=== PATIENT | male | born 1955 | race Caucasian/White ===

== ENCOUNTER → 2018-05-20 07:34 | Outpatient (CLI) | payer OTHER, SELFPAY ==
[2018-05-20 08:34] LABS: Add Manual Diff / Slide Review NO; Basophils Percent Auto 0.6 % (0-2); Eosinophils Percent Auto 3.9 % (2-4); Hematocrit 39.4 % (41-53); Hemoglobin 13.6 g/dL (13.5-17.5); Mean Corpuscular HGB Conc 34.6 % (30-36); Mean Corpuscular Hemoglobin 30.9 PG (26-34); Mean Corpuscular Volume 89.3 fL (80-100); Monocytes Percent Auto 10.4 % (3-14); Neutrophils Absolute Auto 2700 /uL (3000-5900); Neutrophils Percent Auto 52.1 % (50-75); Platelet Count 169 X10^3/uL (150-400); Red Blood Cell Count 4.41 X10^6/uL (4.5-5.9); Red Cell Distribution Width 13.5 % (11.6-14.8); White Blood Cell Count 5.2 X10^3/uL (4.5-11.0)
[2018-05-20 09:09] LABS: Alanine Aminotransferase 43 IU/L (21-72); Albumin 4.2 g/dL (3.5-5.0); Albumin Globulin Ratio 1.4 (1.0-2.8); Alkaline Phosphatase 39 U/L (38-126); Aspartate Aminotransferase 27 IU/L (17-59); BUN Creatinine Ratio 17.7 (6-22); Bilirubin Total 0.6 mg/dL (0.2-1.3); Blood Urea Nitrogen 23 mg/dL (9-20); Calcium 9.3 mg/dL (8.4-10.2); Carbon Dioxide 28 mmol/L (22-32); Chloride 108 mmol/L (98-107); Cholesterol 216 mg/dL (140-199); Estimated Glomerular Filt Rate 55.6 mL/min (>60); Globulin 2.9 g/dL (1.7-4.1); Glucose 102 mg/dL (80-110); HDL Cholesterol 34 mg/dL (40-60); HEMOLYSIS < 15 (0-50); LDL Cholesterol Calculated 153 mg/dL (<100); Potassium 4.7 mmol/L (3.4-5.1); Sodium 144 mmol/L (137-145); Total Protein 7.1 g/dL (6.3-8.2); Triglycerides 147 mg/dL (35-150)
== END ==
PROVIDERS: PCP Family Medicine; Visit Provider Family Medicine
DX: E78.00 Pure hypercholesterolemia, unspecified (principal); Z12.5 Encounter for screening for malignant neoplasm of prostate
CPT/HCPCS: 36415; 80053; 80061; 84153; 85025

== ENCOUNTER 2018-08-08 10:15 | Day surgery (SDC) | payer OTHER, SELFPAY ==
--- NOTE | 2018-08-08 | PATH_ITS ---
[facility] Accession Number: [id number] . 01 Material submitted: . PART A: COLON POLYP AT 15CM PART B: COLON POLYP AT 50CM X2 . 02 Diagnosis: A. Colon Polyp at 15 cm: Hyperplastic polyp. . B. Colon Polyps at 50 cm: Fragments of hyperplastic polyp (two polyps removed). MRV/08/10/2018 . 02 Electronically signed: . Newton Man MD, PhD, Pathologist NPI- [id number] . 01 Gross description: . Part A: COLON POLYP AT 15CM: Received in formalin are 3 fragment(s) of carnes, soft tissue measuring 0.6 x 0.5 x 0.1 cm to 0.3 x 0.2 x 0.2 cm submitted entirely in 1 cassette(s) Part B: COLON POLYP AT 50CM X2: Received in formalin are multiple fragment(s) of carnes, soft tissue measuring 0.9 x 0.4 x 0.1 cm in aggregate submitted entirely in 1 cassette(s) /CKI /CKI . 02 Pathologist provided ICD-10: K63.5 . 02 CPT . 194833, 041694 Performed at: 01 [facility] [address], [place], [place] [id number] MD Major Benjamin MD Phone: [phone] Performed at: 02 [facility] [address] [place], [place] [id number] MD Merline Clay MD Phone: [phone]
[2018-08-08 12:15] VITALS: BMI 24.4
[2018-08-08 12:29] VITALS: BP 118/78; PULSE 71; RESP 15; TEMP 36.6; O2SAT 92
[2018-08-08] MEDS: SODIUM CHLORIDE 0.9% 1,000 ML 21 ML IV (12:30)
[2018-08-08] MEDS: MIDAZOLAM 5 MG/5 ML VIAL IV ×2 (13:31→13:32)
[2018-08-08] MEDS: fentaNYL 250 MCG/5 ML INJ IV (13:31)
[2018-08-08 13:52] VITALS: BP 106/74; PULSE 89; RESP 15; TEMP 36; O2SAT 96
[2018-08-08 13:57] VITALS: BP 106/69; PULSE 87; RESP 16; O2SAT 95
[2018-08-08 14:04] VITALS: BP 105/72; PULSE 87; RESP 16; O2SAT 96
[2018-08-08 14:20] VITALS: BP 119/70; PULSE 85; RESP 15; TEMP 36.7; O2SAT 96
--- NOTE | 2018-08-08 15:52 | HP_ITS ---
DATE OF SERVICE: 08/08/2018 Patient is coming in for his first screening colonoscopy, asymptomatic. No melena. No hematochezia. No abdominal pain. PAST MEDICAL HISTORY: Has hypercholesterolemia. PAST SURGICAL HISTORY: He has had a hernia repair. ALLERGIES: HE IS ALLERGIC TO ASPIRIN. MEDICATIONS: Takes no medications for his cholesterol. Does take occasional sildenafil 25 mg. REVIEW OF SYSTEMS: Denies exertional chest pain or unusual shortness of breath. GI: negative. : Negative. Neurologic: Normal. No strokes or seizures. PHYSICAL EXAMINATION VITAL SIGNS: Blood pressure 118/78, heart rate 71, respirations 15, afebrile. HEENT: Ears, nose, and throat are normal. NECK: No adenopathy. CHEST: Lungs are clear. HEART: Regular rhythm. No murmur. ABDOMEN: Soft, no organomegaly. No tenderness. : Patient will have a rectal exam at the time of colonoscopy. DIAGNOSIS: Screening colonoscopy. Marion Peter - Giuliano/ doc#: [id number]/job#: [id number] dd: 08/08/2018 13:18:00 dt: 08/08/2018 15:36:00 DICTATING /COPIES TO: Fly Condon MD COPIES MNE: ALCIDES
--- NOTE | 2018-08-08 16:42 | OP_ITS ---
DATE OF SERVICE: 08/08/2018 PREOP DIAGNOSIS: Screening colonoscopy. POSTOP DIAGNOSIS: Finding probably hyperplastic polyp at 20 and 50 cm, likely not true adenomas. OPERATION: Total colonoscopy to the cecum. Removal of polyp at 20 and 50 cm. SURGEON: Fly Condon MD DESCRIPTION OF PROCEDURE: The patient was properly identified during surgical pause. He was given conscious sedation using a total of 5 mg Versed and 200 mcg of fentanyl. The flexible fiberoptic colonoscope inserted transanally to the cecum. Patient did have a small pedunculated 5-mm polyp at 20 cm and another at 50 cm. They looked identical. They were very likely hyperplastic in nature. Doubt that they are true adenomas. These were removed with the cold forceps. The procedure was very well tolerated. Marion, Peter - Giuliano/carter doc#: [id number]/job#: [id number] dd: 08/08/2018 13:52:00 dt: 08/08/2018 16:38:00 DICTATING /COPIES TO: Fly Condon MD COPIES MNE: ALCIDES
== END 2018-08-08 14:45 ==
PROVIDERS: Visit Provider Surgery
PROC: 0DJD8ZZ Inspection of Lower Intestinal Tract, Via Natural or Artificial Opening Endoscopic (ICD-10-PCS; CPT 45378; principal; 2018-08-08 13:45)
DX: Z12.11 Encounter for screening for malignant neoplasm of colon (principal); K63.5 Polyp of colon; E78.00 Pure hypercholesterolemia, unspecified
CPT/HCPCS: 45380; J2250; J3010

== ENCOUNTER → 2018-11-26 08:48 | Outpatient (CLI) | payer OTHER, SELFPAY ==
[2018-11-26 09:30] LABS: Alanine Aminotransferase 44 IU/L (21-72); Albumin 4.3 g/dL (3.5-5.0); Albumin Globulin Ratio 1.7 (1.0-2.8); Alkaline Phosphatase 48 U/L (38-126); Aspartate Aminotransferase 26 IU/L (17-59); BUN Creatinine Ratio 14.2 (6-22); Bilirubin Total 0.6 mg/dL (0.2-1.3); Blood Urea Nitrogen 17 mg/dL (9-20); Calcium 9.3 mg/dL (8.4-10.2); Carbon Dioxide 24 mmol/L (22-32); Chloride 106 mmol/L (98-107); Cholesterol 214 mg/dL (140-199); Estimated Glomerular Filt Rate > 60.0 mL/min (>60); Globulin 2.5 g/dL (1.7-4.1); Glucose 99 mg/dL (80-110); HDL Cholesterol 39 mg/dL (40-60); HEMOLYSIS < 15 (0-50); LDL Cholesterol Calculated 149 mg/dL (<100); Potassium 4.6 mmol/L (3.4-5.1); Sodium 139 mmol/L (137-145); Total Protein 6.8 g/dL (6.3-8.2); Triglycerides 131 mg/dL (35-150)
== END ==
PROVIDERS: PCP Nurse Practitioner; Visit Provider Nurse Practitioner
DX: N19 Unspecified kidney failure (principal)
CPT/HCPCS: 36415; 80053; 80061

== ENCOUNTER → 2019-06-19 09:36 | Outpatient (CLI) | payer MEDICARE, OTHER, SELFPAY ==
--- NOTE | 2019-06-19 09:38 | DI.US.S_ITS ---
PROCEDURE: US ABD AORTA ANEURYSM SCREEN INDICATIONS: SCREEN TECHNIQUE: Real time scanning was performed of the aorta and iliac arteries, with image documentation. COMPARISON: None. FINDINGS: Aorta: Proximal aortic diameter is not seen due to bowel gas cm. Mid-aorta measures 1.9 cm. Distal aortic diameter is 1.9 cm. Iliac arteries: Right common iliac artery measures 2.3 x 2.1 cm in axial dimension and this is over a fusiform length of 4.6 cm. Left common iliac artery measures 1.5 cm. IMPRESSION: Abdominal aortic aneurysm is not identified but the upper third of the aorta could not be seen due to bowel gas. Note is made of a common iliac artery aneurysm with a maximal axial dimension of 2.3 cm over a fusiform craniocaudad length of 4.6 cm. Dictated by: Bishnu Dennis M.D. on 06/19/2019 at 10:22 Approved by: Bishnu Dennis M.D. on 06/19/2019 at 10:24
== END ==
PROVIDERS: PCP Nurse Practitioner; Visit Provider Nurse Practitioner
DX: Z13.6 Encounter for screening for cardiovascular disorders (principal); I72.3 Aneurysm of iliac artery; Z13.820 Encounter for screening for osteoporosis; M85.852 Other specified disorders of bone density and structure, left thigh; M85.851 Other specified disorders of bone density and structure, right thigh; Z87.891 Personal history of nicotine dependence
CPT/HCPCS: 76706; 77080

== ENCOUNTER → 2019-10-10 07:36 | Outpatient (CLI) | payer MEDICARE, OTHER, SELFPAY ==
[2019-10-10 08:34] LABS: Alanine Aminotransferase 37 IU/L (<50); Albumin 4.6 g/dL (3.5-5.0); Albumin Globulin Ratio 1.5 (1.0-2.8); Alkaline Phosphatase 48 U/L (38-126); Aspartate Aminotransferase 33 IU/L (17-59); BUN Creatinine Ratio 16.9 (6-22); Bilirubin Total 0.7 mg/dL (0.2-1.3); Blood Urea Nitrogen 22 mg/dL (9-20); Calcium 9.3 mg/dL (8.4-10.2); Carbon Dioxide 25 mmol/L (22-32); Chloride 105 mmol/L (98-107); Cholesterol 230 mg/dL (140-199); Estimated Glomerular Filt Rate 55.4 mL/min (>60); Globulin 3.1 g/dL (1.7-4.1); Glucose 109 mg/dL (80-110); HDL Cholesterol 38 mg/dL (40-60); HEMOLYSIS < 15 (0-50); LDL Cholesterol Calculated 170 mg/dL (<100); Potassium 4.3 mmol/L (3.4-5.1); Sodium 141 mmol/L (137-145); Total Protein 7.7 g/dL (6.3-8.2); Triglycerides 112 mg/dL (35-150)
[2019-10-10 08:54] LABS: Free T3, Triiodothyronine Free 3.74 pg/mL (2.77-5.27); Free T4, Direct Thyroxine 0.84 ng/dL (0.78-2.19)
[2019-10-10 09:00] LABS: Prostate Specific Antigen Scrn 1.59 ng/mL (0.1-4.0)
[2019-10-10 09:08] LABS: Thyroid Stimulating Hormone 5.66 uIU/mL (0.47-4.68)
== END ==
PROVIDERS: PCP Nurse Practitioner; Referring Provider Nurse Practitioner; Visit Provider Nurse Practitioner
DX: Z12.5 Encounter for screening for malignant neoplasm of prostate (principal); Z13.29 Encounter for screening for other suspected endocrine disorder; E78.00 Pure hypercholesterolemia, unspecified; R94.6 Abnormal results of thyroid function studies; Z90.89 Acquired absence of other organs
CPT/HCPCS: 36415; 80053; 80061; 84439; 84443; 84481; G0103

== ENCOUNTER → 2019-11-18 08:13 | Outpatient (CLI) | payer MEDICARE, OTHER, SELFPAY ==
[2019-11-18 08:49] LABS: Alanine Aminotransferase 39 IU/L (<50); Albumin 4.4 g/dL (3.5-5.0); Albumin Globulin Ratio 1.4 (1.0-2.8); Alkaline Phosphatase 43 U/L (38-126); Aspartate Aminotransferase 33 IU/L (17-59); Bilirubin Total 0.6 mg/dL (0.2-1.3); Bilirubin Unconjugated 0.5 mg/dL (0.0-1.1); Cholesterol 171 mg/dL (140-199); Globulin 3.1 g/dL (1.7-4.1); HDL Cholesterol 33 mg/dL (40-60); HEMOLYSIS < 15 (0-50); LDL Cholesterol Calculated 116 mg/dL (<100); Total Protein 7.5 g/dL (6.3-8.2); Triglycerides 112 mg/dL (35-150)
== END ==
PROVIDERS: PCP Nurse Practitioner; Referring Provider Nurse Practitioner; Visit Provider Nurse Practitioner
DX: E78.2 Mixed hyperlipidemia (principal)
CPT/HCPCS: 36415; 80061; 80076

== ENCOUNTER → 2020-02-29 14:33 | Outpatient (CLI) | payer MEDICARE, OTHER, SELFPAY ==
[2020-02-29 15:10] LABS: Alanine Aminotransferase 34 IU/L (<50); Albumin 4.4 g/dL (3.5-5.0); Albumin Globulin Ratio 1.8 (1.0-2.8); Alkaline Phosphatase 42 U/L (38-126); Aspartate Aminotransferase 33 IU/L (17-59); Bilirubin Total 0.7 mg/dL (0.2-1.3); Bilirubin Unconjugated 0.7 mg/dL (0.0-1.1); Cholesterol 174 mg/dL (140-199); Globulin 2.5 g/dL (1.7-4.1); HDL Cholesterol 36 mg/dL (40-60); HEMOLYSIS < 15 (0-50); LDL Cholesterol Calculated 101 mg/dL (<100); Total Protein 6.9 g/dL (6.3-8.2); Triglycerides 187 mg/dL (35-150)
== END ==
PROVIDERS: PCP Nurse Practitioner; Referring Provider Nurse Practitioner; Visit Provider Nurse Practitioner
DX: E78.2 Mixed hyperlipidemia (principal); Z79.899 Other long term (current) drug therapy
CPT/HCPCS: 36415; 80061; 80076

== ENCOUNTER → 2020-08-07 08:39 | Outpatient (CLI) | payer MEDICARE, OTHER, SELFPAY ==
[2020-08-07 10:18] LABS: Alanine Aminotransferase 41 IU/L (<50); Albumin 4.2 g/dL (3.5-5.0); Albumin Globulin Ratio 1.6 (1.0-2.8); Alkaline Phosphatase 40 U/L (38-126); Aspartate Aminotransferase 34 IU/L (17-59); BUN Creatinine Ratio 13.5 (6-22); Bilirubin Total 0.7 mg/dL (0.2-1.3); Blood Urea Nitrogen 19 mg/dL (9-20); Calcium 9.5 mg/dL (8.4-10.2); Carbon Dioxide 30 mmol/L (22-32); Chloride 105 mmol/L (98-107); Cholesterol 175 mg/dL (140-199); Estimated Glomerular Filt Rate 50.3 mL/min (>60); Globulin 2.6 g/dL (1.7-4.1); Glucose 102 mg/dL (80-110); HDL Cholesterol 41 mg/dL (40-60); HEMOLYSIS < 15 (0-50); LDL Cholesterol Calculated 109 mg/dL (<100); Potassium 5.1 mmol/L (3.4-5.1); Sodium 138 mmol/L (137-145); Total Protein 6.8 g/dL (6.3-8.2); Triglycerides 126 mg/dL (35-150)
[2020-08-07 10:32] LABS: Free T3, Triiodothyronine Free 3.85 pg/mL (2.77-5.27); Free T4, Direct Thyroxine 0.92 ng/dL (0.78-2.19)
[2020-08-07 10:46] LABS: Thyroid Stimulating Hormone 4.24 uIU/mL (0.47-4.68)
== END ==
PROVIDERS: PCP Nurse Practitioner; Referring Provider Nurse Practitioner; Visit Provider Nurse Practitioner
DX: E78.2 Mixed hyperlipidemia (principal); N18.30 Chronic kidney disease, stage 3 unspecified; R94.6 Abnormal results of thyroid function studies; Z79.899 Other long term (current) drug therapy
CPT/HCPCS: 36415; 80053; 80061; 84439; 84443; 84481

== ENCOUNTER → 2021-07-12 08:53 | Outpatient (CLI) | payer MEDICARE, OTHER, SELFPAY ==
[2021-07-12 10:04] LABS: Alanine Aminotransferase 33 IU/L (<50); Albumin 4.4 g/dL (3.5-5.0); Albumin Globulin Ratio 1.8 (1.0-2.8); Alkaline Phosphatase 40 U/L (38-126); Aspartate Aminotransferase 28 IU/L (17-59); BUN Creatinine Ratio 13.1 (6-22); Bilirubin Total 0.6 mg/dL (0.2-1.3); Blood Urea Nitrogen 19 mg/dL (9-20); Calcium 9.6 mg/dL (8.4-10.2); Carbon Dioxide 28 mmol/L (22-32); Chloride 107 mmol/L (98-107); Cholesterol 184 mg/dL (140-199); Estimated Glomerular Filt Rate 48.5 mL/min (>60); Globulin 2.5 g/dL (1.7-4.1); Glucose 98 mg/dL (80-110); HDL Cholesterol 42 mg/dL (40-60); HEMOLYSIS < 15 (0-50); LDL Cholesterol Calculated 117 mg/dL (<100); Potassium 4.7 mmol/L (3.4-5.1); Sodium 141 mmol/L (137-145); Total Protein 6.9 g/dL (6.3-8.2); Triglycerides 123 mg/dL (35-150)
[2021-07-12 10:22] LABS: Free T3, Triiodothyronine Free 4.02 pg/mL (2.77-5.27); Free T4, Direct Thyroxine 0.86 ng/dL (0.78-2.19)
[2021-07-12 10:36] LABS: Thyroid Stimulating Hormone 4.39 uIU/mL (0.47-4.68)
[2021-07-12 11:40] LABS: Microalbumi Creatinin Ratio Ur 3.1 ug/mg CR (<30); Microalbumin Urine Random 0.8 mg/dL (0-1.6)
== END ==
PROVIDERS: PCP Nurse Practitioner; Referring Provider Nurse Practitioner; Visit Provider Nurse Practitioner
DX: E78.00 Pure hypercholesterolemia, unspecified (principal); E78.2 Mixed hyperlipidemia; N18.30 Chronic kidney disease, stage 3 unspecified; R94.6 Abnormal results of thyroid function studies; Z79.899 Other long term (current) drug therapy; Z12.5 Encounter for screening for malignant neoplasm of prostate
CPT/HCPCS: 36415; 80053; 80061; 82043; 82570; 84153; 84439; 84443; 84481; G0103

== ENCOUNTER → 2021-07-14 14:16 | Outpatient (CLI) | payer MEDICARE, OTHER, SELFPAY | PROVIDERS: PCP Nurse Practitioner; Referring Provider Nurse Practitioner; Visit Provider Nurse Practitioner | DX: M85.851 Other specified disorders of bone density and structure, right thigh (principal); N28.9 Disorder of kidney and ureter, unspecified; Z87.891 Personal history of nicotine dependence | CPT/HCPCS: 77080 ==

== ENCOUNTER → 2022-07-07 08:53 | Outpatient (CLI) | payer MEDICARE, OTHER, SELFPAY ==
[2022-07-07 10:44] LABS: Add Manual Diff / Slide Review NO; Basophils Absolute Auto 0 /uL (0-100); Basophils Percent Auto 0.7 % (0-2); Eosinophils Absolute Auto 200 /uL (0-450); Eosinophils Percent Auto 2.9 % (2-4); Hematocrit 43.2 % (41-53); Hemoglobin 14.5 g/dL (13.5-17.5); Lymphocytes Absolute Auto 1700 /uL (1100-4500); Lymphocytes Percent Auto 32.6 % (25-40); Mean Corpuscular HGB Conc 33.6 % (30-36); Mean Corpuscular Hemoglobin 30.2 PG (26-34); Monocytes Absolute Auto 500 /uL (0-900); Neutrophils Absolute Auto 2900 /uL (1500-7000); Neutrophils Percent Auto 54.8 % (50-75); Platelet Count 138 X10^3/uL (150-400); White Blood Cell Count 5.3 X10^3/uL (4.5-11.0)
[2022-07-07 11:25] LABS: Alanine Aminotransferase 29 IU/L (<50); Albumin 4.2 g/dL (3.5-5.0); Albumin Globulin Ratio 1.5 (1.0-2.8); Alkaline Phosphatase 43 U/L (38-126); Aspartate Aminotransferase 25 IU/L (17-59); BUN Creatinine Ratio 14.8 (6-22); Bilirubin Total 0.5 mg/dL (0.2-1.3); Blood Urea Nitrogen 18 mg/dL (9-20); Carbon Dioxide 28 mmol/L (22-32); Chloride 104 mmol/L (98-107); Cholesterol 183 mg/dL (140-199); Estimated Glomerular Filt Rate > 60 mL/min (>60); Globulin 2.8 g/dL (1.7-4.1); Glucose 100 mg/dL (80-110); HDL Cholesterol 41 mg/dL (40-60); HEMOLYSIS < 15 (0-50); LDL Cholesterol Calculated 120 mg/dL (<100); Potassium 4.7 mmol/L (3.4-5.1); Sodium 138 mmol/L (137-145); Triglycerides 108 mg/dL (35-150)
[2022-07-07 11:31] LABS: Free T3, Triiodothyronine Free 3.72 pg/mL (2.77-5.27); Free T4, Direct Thyroxine 0.85 ng/dL (0.78-2.19)
[2022-07-07 11:45] LABS: Thyroid Stimulating Hormone 3.19 uIU/mL (0.47-4.68)
[2022-07-07 11:46] LABS: Prostate Specific Antigen 1.48 ng/mL (0.10-4.00)
[2022-07-07 15:26] LABS: Creatinine Urine Random 38.5 mg/dL
[2022-07-07 15:59] LABS: Microalbumin Urine Random < 0.6 mg/dL (0-1.6)
== END ==
PROVIDERS: PCP Nurse Practitioner; Referring Provider Nurse Practitioner; Visit Provider Nurse Practitioner
DX: E78.00 Pure hypercholesterolemia, unspecified (principal); R94.6 Abnormal results of thyroid function studies; E78.2 Mixed hyperlipidemia; N18.30 Chronic kidney disease, stage 3 unspecified
CPT/HCPCS: 36415; 80053; 80061; 82043; 82570; 84153; 84439; 84443; 84481; 85025

== ENCOUNTER → 2022-11-24 16:42 | Outpatient (CLI) | payer MEDICARE, OTHER, SELFPAY ==
--- NOTE | 2022-11-24 16:45 | DI.RAD.S_ITS ---
PROCEDURE: XR HIP W PEL IF DONE RT 2V INDICATIONS: right leg weakness, pain TECHNIQUE: AP pelvis with lateral view(s) of the right hip(s). COMPARISON: None. FINDINGS: Bones: Asymmetric moderate right hip joint osteoarthritic changes are seen with joint space narrowing, subchondral sclerosis and marginal osteophyte formation. Prominence of superior right femoral head neck junction is also seen which can be seen associated with CAM type femoral acetabular impingement. No evidence of avascular necrosis of femoral head. No fractures or dislocations. Pelvic ring appears intact. No suspicious bony lesions. Soft tissues: The visualized bowel gas pattern is normal. No suspicious soft tissue calcifications. IMPRESSION: Asymmetric moderate right hip joint osteoarthritis. No fracture or dislocation. No evidence of avascular necrosis. Dictated by: Tomy Enriquez M.D. on 11/24/2022 at 17:50 Approved by: Tomy Enriquez M.D. on 11/24/2022 at 17:51
--- NOTE | 2022-11-24 16:45 | DI.RAD.S_ITS ---
PROCEDURE: XR LUMBAR SPINE 2-3V INDICATIONS: right leg weakness, pain TECHNIQUE: 3 views of the lumbar spine were acquired. COMPARISON: None. FINDINGS: Bones: 5 [id number] vertebrae are present. There is normal bony alignment. Degenerative endplate changes and bilateral facet arthrosis throughout lumbar spine is seen more notably at L4-5 and L5-S1 levels. No vertebral body compression fractures. No suspicious bony lesions. Soft tissues: Overlying bowel gas pattern is normal. No suspicious soft tissue calcifications. IMPRESSION: Degenerative disc disease throughout lumbar spine. No acute compression fracture or spondylolisthesis. Dictated by: Tomy Enriquez M.D. on 11/24/2022 at 17:51 Approved by: Tomy Enriquez M.D. on 11/24/2022 at 17:52
== END ==
PROVIDERS: PCP Nurse Practitioner; Referring Provider Nurse Practitioner Family; Visit Provider Nurse Practitioner Family
DX: M16.11 Unilateral primary osteoarthritis, right hip (principal); M51.36 Other intervertebral disc degeneration, lumbar region; M51.37 Other intervertebral disc degeneration, lumbosacral region; M79.651 Pain in right thigh
CPT/HCPCS: 72100; 73502

== ENCOUNTER → 2023-07-06 09:27 | Outpatient (CLI) | payer MEDICARE, OTHER, SELFPAY ==
[2023-07-06 10:50] LABS: Add Manual Diff / Slide Review NO; Basophils Absolute Auto 0 /uL (0-100); Basophils Percent Auto 0.9 % (0-2); Eosinophils Absolute Auto 100 /uL (0-450); Eosinophils Percent Auto 2.7 % (2-4); Hematocrit 40.6 % (41-53); Hemoglobin 13.6 g/dL (13.5-17.5); Lymphocytes Absolute Auto 1400 /uL (1100-4500); Lymphocytes Percent Auto 31.5 % (25-40); Mean Corpuscular HGB Conc 33.6 % (30-36); Mean Corpuscular Hemoglobin 30.3 PG (26-34); Mean Corpuscular Volume 90.1 fL (80-100); Monocytes Absolute Auto 400 /uL (0-900); Monocytes Percent Auto 10.2 % (3-14); Neutrophils Absolute Auto 2400 /uL (1500-7000); Neutrophils Percent Auto 54.7 % (50-75); Platelet Count 136 X10^3/uL (150-400); Red Cell Distribution Width 13.5 % (11.6-14.8); White Blood Cell Count 4.3 X10^3/uL (4.5-11.0)
[2023-07-06 11:08] LABS: Alanine Aminotransferase 31 IU/L (<50); Albumin 4.4 g/dL (3.5-5.0); Albumin Globulin Ratio 1.5 (1.0-2.8); Alkaline Phosphatase 41 U/L (38-126); Aspartate Aminotransferase 29 IU/L (17-59); BUN Creatinine Ratio 18.9 (6-22); Bilirubin Total 0.7 mg/dL (0.2-1.3); Blood Urea Nitrogen 27 mg/dL (9-20); Calcium 9.6 mg/dL (8.4-10.2); Carbon Dioxide 27 mmol/L (22-32); Chloride 105 mmol/L (98-107); Cholesterol 145 mg/dL (140-199); Estimated Glomerular Filt Rate 53 mL/min (>60); Globulin 2.9 g/dL (1.7-4.1); Glucose 100 mg/dL (80-110); HDL Cholesterol 38 mg/dL (40-60); HEMOLYSIS < 15 (0-50); LDL Cholesterol Calculated 88 mg/dL (<100); Potassium 4.7 mmol/L (3.4-5.1); Sodium 139 mmol/L (137-145); Total Protein 7.3 g/dL (6.3-8.2); Triglycerides 93 mg/dL (35-150)
[2023-07-06 11:20] LABS: Vitamin D 25 Hydroxy (D3) 38.9 ng/mL (30.0-100.0)
[2023-07-06 11:21] LABS: Free T3, Triiodothyronine Free 3.94 pg/mL (2.77-5.27); Free T4, Direct Thyroxine 1.11 ng/dL (0.78-2.19)
[2023-07-06 16:21] LABS: Microalbumin Urine Random 1.3 mg/dL (0-1.6)
[2023-07-06 17:57] LABS: Creatinine Urine Random 406.3 mg/dL; Microalbumi Creatinin Ratio Ur 3.1 ug/mg CR (<30)
== END ==
PROVIDERS: PCP Nurse Practitioner; Referring Provider Family Medicine; Visit Provider Family Medicine
DX: R00.9 Unspecified abnormalities of heart beat (principal); N18.30 Chronic kidney disease, stage 3 unspecified; E78.2 Mixed hyperlipidemia; R03.0 Elevated blood-pressure reading, without diagnosis of hypertension; R94.6 Abnormal results of thyroid function studies
CPT/HCPCS: 36415; 80053; 80061; 82043; 82306; 82570; 84439; 84443; 84481; 85025

== ENCOUNTER → 2023-10-11 15:00 | Outpatient (CLI) | payer MEDICARE, OTHER, SELFPAY | LOC: CAR 15:01 | PROVIDERS: PCP Nurse Practitioner; Referring Provider Nurse Practitioner; Visit Provider Nurse Practitioner | DX: R00.0 Tachycardia, unspecified (principal); I95.81 Postprocedural hypotension | CPT/HCPCS: 93246 ==

== ENCOUNTER 2024-01-11 09:32 | Day surgery (SDC) | payer MEDICARE, OTHER, SELFPAY ==
--- NOTE | 2024-01-11 | PATH_ITS ---
[facility] Accession Number: [id number] No. of containers..01 Tissue . 01 Material submitted: . colon - TRANSVERSE COLON POLYP . 01 Diagnosis: TRANSVERSE COLON POLYP: Hyperplastic polyp. STO 01/17/2024 1154 Local . 01 Electronically signed: . Major Benjamin MD, Pathologist NPI- [id number] . 01 Gross description: . TRANSVERSE COLON POLYP: Received in formalin is 1 fragment(s) of carnes, soft tissue measuring 0.6 x 0.6 x 0.2 cm submitted entirely in 1 cassette(s) /ENMANUEL 01/17/2024 1154 Local . 01 Pathologist provided ICD-10: K63.5 . 01 CPT . 063061 Specimen Comment: A courtesy copy of this report has been sent to [phone] Performed at: 01 [facility] [address] [place] [id number] MD Major Benjamin MD Phone: [phone]
[2024-01-11] MEDS: LACTATED RINGERS 1,000 ML 42 ML IV (10:10)
[2024-01-11 10:16] VITALS: BP 117/75; PULSE 105; RESP 14; TEMP 36.2; O2SAT 95
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
[2024-01-11 11:30] VITALS: BP 96/59; PULSE 81; RESP 16; TEMP 37.1; O2SAT 94
[2024-01-11 11:33] VITALS: BP 92/55; PULSE 81; RESP 16; O2SAT 92
[2024-01-11] MEDS: ONDANSETRON 4 MG/2 ML INJ IV (11:35)
--- NOTE | 2024-01-11 11:38 | PM.OP.COLON ---
Operative Date/Time/Diagnoses Date of procedure: 01/11/24 Time of procedure: 11:38 Pre-op diagnosis: Operative Date/Time/Diagnoses Date of procedure: 01/11/24 Time of procedure: 11:33 Pre-op diagnosis: Family history of colon cancer Procedure & Clinicians Study performed: Screening colonoscopy Same procedure as scheduled: Yes Indications: Family history of colon cancer Personal history of colonic polyps Surgeon: Deepak Cagle Procedure Notes Procedure in detail: The history and physical was performed/updated and the patient is ASA class is 2. The procedure was discussed in detail with the patient. Potential risks complications including infection, bleeding, missed diagnosis, perforation, need for surgery, and were explained. Their questions were answered and informed consent was obtained. Patient was brought to the procedure room and placed standard monitoring equipment. The patient's vital signs were monitored continuously throughout the entire procedure. Prior to starting time-out was performed. The patient was placed in the left lateral recumbent position. Procedural sedation was administered by anesthesia. Examination began with a thorough inspection of the perianal area there was no evidence of fissures, fistulae, external hemorrhoids or cutaneous malignancy. The colonoscopy scope was then placed into the anal canal and was advanced to the cecum, which was identified by the ileocecal valve, the appendiceal orifice and the confluence of the taenia. The scope was then slowly withdrawn examining colon thoroughly in all directions, irrigating it of any residual stool. The scope was retroflexed within the rectum The patient tolerated the procedure well. They will be discharged once criteria are met. The prep was of good/excellent quality. The withdrawl time was 12 minutes. FINDINGS Transverse colon 8 mm sessile polyp removed with cold snare in entirety. Colon tattooed directly adjacent to the lesion. Descending colon diverticulosis Internal hemorrhoids Specimen(s): other (Transverse colon polyp) Impression: Colonic polyp x1 Post-procedure Recommendations: High fiber diet Plan for aftercare: Follow-up is dependent on pathology findings Disposition: same day surgery
[2024-01-11 11:39] VITALS: BP 94/60; PULSE 86; RESP 18; O2SAT 93
[2024-01-11 11:44] VITALS: BP 101/65; PULSE 85; RESP 16
[2024-01-11 11:49] VITALS: BP 108/59; PULSE 83; RESP 18; TEMP 36.5; O2SAT 95
== END 2024-01-11 12:19 | disposition home or self-care (01) ==
PROVIDERS: PCP Nurse Practitioner; Referring Provider Surgery; Visit Provider Surgery
PROC: 0DJD8ZZ Inspection of Lower Intestinal Tract, Via Natural or Artificial Opening Endoscopic (ICD-10-PCS; CPT 45378; principal; 2024-01-11 10:45)
DX: Z12.11 Encounter for screening for malignant neoplasm of colon (principal); Z80.0 Family history of malignant neoplasm of digestive organs; K57.30 Diverticulosis of large intestine without perforation or abscess without bleeding; K63.5 Polyp of colon
CPT/HCPCS: 45385; 45381; J2405; J2704

== ENCOUNTER → 2024-04-26 11:27 | Outpatient (CLI) | payer MEDICARE, OTHER, SELFPAY ==
[2024-04-26 12:20] LABS: Influenza A - CEPHEID Flu A NEGATIVE (NEGATIVE); Influenza B - CEPHEID Flu B NEGATIVE (NEGATIVE); Respiratory Syncytial Virus Negative (Negative)
[2024-04-26 12:23] LABS: COVID-19 CEPHEID 4-PLEX PCR Negative (Negative)
== END ==
PROVIDERS: PCP Nurse Practitioner; Referring Provider Physician Assistant Surgical; Visit Provider Physician Assistant Surgical
DX: R05.1 Acute cough (principal)
CPT/HCPCS: 0241U

== ENCOUNTER → 2024-06-30 08:44 | Outpatient (CLI) | payer MEDICARE, OTHER, SELFPAY ==
[2024-06-30 10:31] LABS: Add Manual Diff / Slide Review NO; Basophils Absolute Auto 0 /uL (0-100); Basophils Percent Auto 0.6 % (0-2); Eosinophils Absolute Auto 100 /uL (0-450); Eosinophils Percent Auto 2.8 % (2-4); Hematocrit 40.9 % (41-53); Hemoglobin 13.7 g/dL (13.5-17.5); Lymphocytes Absolute Auto 1800 /uL (1100-4500); Lymphocytes Percent Auto 36.4 % (25-40); Mean Corpuscular HGB Conc 33.4 % (30-36); Mean Corpuscular Hemoglobin 30.5 PG (26-34); Mean Corpuscular Volume 91.2 fL (80-100); Monocytes Absolute Auto 500 /uL (0-900); Monocytes Percent Auto 9.3 % (3-14); Neutrophils Absolute Auto 2500 /uL (1500-7000); Neutrophils Percent Auto 50.9 % (50-75); Platelet Count 159 X10^3/uL (150-400); Red Blood Cell Count 4.49 X10^6/uL (4.5-5.9); Red Cell Distribution Width 13.6 % (11.6-14.8); White Blood Cell Count 4.9 X10^3/uL (4.5-11.0)
[2024-06-30 10:35] LABS: HEMOLYSIS < 15 (0-50)
[2024-06-30 11:06] LABS: Prostate Specific Antigen Scrn 1.48 ng/mL (0.1-4.0)
[2024-06-30 11:09] LABS: Free T3, Triiodothyronine Free 3.88 pg/mL (2.77-5.27)
[2024-06-30 11:10] LABS: Free T4, Direct Thyroxine 0.91 ng/dL (0.78-2.19)
[2024-06-30 11:13] LABS: Alanine Aminotransferase 24 IU/L (<50); Albumin 4.2 g/dL (3.5-5.0); Albumin Globulin Ratio 1.8 (1.0-2.8); Alkaline Phosphatase 38 U/L (38-126); Aspartate Aminotransferase 29 IU/L (17-59); BUN Creatinine Ratio 17.6 (6-22); Bilirubin Total 0.7 mg/dL (0.2-1.3); Blood Urea Nitrogen 22 mg/dL (9-20); Calcium 9.4 mg/dL (8.4-10.2); Carbon Dioxide 24 mmol/L (22-32); Chloride 110 mmol/L (98-107); Estimated Glomerular Filt Rate > 60 mL/min (>60); Globulin 2.4 g/dL (1.7-4.1); Glucose 101 mg/dL (80-110); Potassium 4.7 mmol/L (3.4-5.1); Sodium 140 mmol/L (137-145); Total Protein 6.6 g/dL (6.3-8.2)
[2024-06-30 11:14] LABS: Creatinine Urine Random 201.18 mg/dL
[2024-06-30 11:20] LABS: Microalbumin Urine Random 0.8 mg/dL (0-1.6)
[2024-06-30 11:23] LABS: Thyroid Stimulating Hormone 2.69 uIU/mL (0.47-4.68)
[2024-06-30 12:02] LABS: Cholesterol 156 mg/dL (140-199); HDL Cholesterol 41 mg/dL (40-60); LDL Cholesterol Calculated 95 mg/dL (<100); Triglycerides 100 mg/dL (35-150)
== END ==
PROVIDERS: PCP Registered Nurse Diabetes Educator; Referring Provider Nurse Practitioner; Visit Provider Nurse Practitioner
DX: D69.6 Thrombocytopenia, unspecified (principal); N18.30 Chronic kidney disease, stage 3 unspecified; Z12.5 Encounter for screening for malignant neoplasm of prostate; E78.2 Mixed hyperlipidemia; R00.9 Unspecified abnormalities of heart beat; R03.0 Elevated blood-pressure reading, without diagnosis of hypertension; Z79.899 Other long term (current) drug therapy
CPT/HCPCS: 36415; 80053; 80061; 82043; 82570; 84439; 84443; 84481; 85025; G0103

== ENCOUNTER → 2024-08-07 13:27 | Outpatient (CLI) | payer MEDICARE, OTHER, SELFPAY ==
--- NOTE | 2024-08-07 13:28 | DI.ECHO.S_ITS ---
[place] +---------+ [facility] : : [address] : : [place] : : [id number] : : Phone: [phone] Echocardiogram Report + + :Name: AGA HANCOCK Study Date: 08/07/2024 Height: 72 in : :[facility] ReadingLocation: Weight: 179 lb : : Gender: Male BSA: 2.0 m2 : :: 1955 Age: 69 yrs BP: 117/82 mmHg: :Reason For Study: CHEST PAIN : :Ordering Physician: STORM ENRIQUEZ Performed By: Janine Momin : :Referring: STORM ENRIQUEZ : + + Interpretation Summary 1. The left ventricular contractility is borderline. Estimate ejection fraction is 50 to 55% with no segmental wall motion abnormalities. No LVH. Unable to comment on diastolic function. 2. The right ventricular contractility is normal. 3. All cardiac chambers are of normal size. 4. No significant valvular abnormalities. 5. No obvious intracardiac shunts. 6. No obvious intracardiac masses nor thrombi. 7. No hemodynamically significant pericardial effusion. 8. Low right-sided filling pressures. Conclusion: Low normal left ventricular systolic function with no significant valvular abnormalities. Procedure: A two-dimensional transthoracic echocardiogram with color flow and Doppler was performed. The study quality was technically adequate. There is no prior echocardiogram noted for this patient. The patient was in sinus rhythm with heart rates between 65-78 bpm during the exam. Left Ventricle: The left ventricle is normal in size and wall thickness. The ejection fraction is estimated to be 50-55%. Right Ventricle: The right ventricle is normal in size, thickness and function. The right ventricular systolic function is normal. Atria: The left atrial size is normal. Right atrial size is normal. There is no Doppler evidence for an interatrial shunt. Mitral Valve: The mitral valve is normal in structure and function. There is no mitral regurgitation noted. Aortic Valve: The aortic valve is trileaflet. The aortic valve opens well. There is no aortic valve stenosis. No aortic regurgitation is present. Tricuspid Valve: The tricuspid valve is normal in structure and function. There is trace tricuspid regurgitation. Pulmonary artery pressures cannot be estimated because of the lack of a measurable TR jet velocity. Pulmonic Valve: The pulmonic valve leaflets are thin and pliable; valve motion is normal. There is no pulmonic valvular regurgitation. Great Vessels: The aortic root is normal size. The dimensions of the ascending aorta are normal. The IVC is of normal diameter and collapses greater than 50% with a sniff. This suggests a low right atrial pressure of 3 mm Hg. Pericardium/ Pleura There is no pericardial effusion. There is no pleural effusion. MMode/2D Measurements & Calculations LVIDd: 4.4 cm LVOT diam: 2.0 cm LVIDs: 3.0 cm Ao root diam: 3.7 cm FS: 31.3 % asc Aorta Diam: 3.6 cm EPSS: 0.48 cm Ao Arch Diam (Prox Trans): 2.7 cm IVSd: 0.75 cm LVPWd: 0.90 cm LV soria. diameter/BSA (cm/m^2): 2.2 LV sys. diameter/BSA (cm/m^2): 1.5 LA A2 area: 16.8 cm2 RA long axis: 5.4 cm LA A4 area: 10.8 cm2 RA area: 14.3 cm2 LA length (vol): 4.9 cm RA vol: 32.2 ml LA vol: 31.4 ml RA : 15.8 ml/m2 LA vol index: 15.5 ml/m2 IVC diam: 1.2 cm RVD1 (basal): 4.1 cm RVD2 (mid): 3.9 cm TAPSE: 2.0 cm Doppler Measurements & Calculations Ao V2 max: 99.5 cm/sec LVOT Max Justen: 67.9 cm/sec Ao V2 mean: 70.7 cm/sec LV V1 max P.8 mmHg Ao max P.0 mmHg LV V1 VTI: 13.1 cm Ao mean P.3 mmHg YUDI(I,D): 2.1 cm2 Ao V2 VTI: 19.9 cm YUDI(V,D): 2.2 cm2 sev ratio: 0.66 YUDI indexed to BSA (cm^2/m^2): 1.0 MV E max justen: 46.3 cm/sec PA V2 max: 86.5 cm/sec MV A max justen: 64.4 cm/sec PA V2 mean: 65.5 cm/sec MV E/A: 0.72 PA mean P.8 mmHg Med Peak E' Justen: 7.1 cm/sec PA pr(Accel): 13.9 mmHg E/E' med: 6.5 Lat Peak E' Justen: 7.0 cm/sec E/E' lat: 6.7 E/e' average: 6.6 MV dec time: 0.30 sec SVLVOT): 41.7 ml Reading Physician:
--- NOTE | 2024-08-07 18:52 | DI.NM.S_ITS ---
DATE OF SERVICE: 08/07/2024 EXERCISE TREADMILL STRESS TEST PROCEDURE: Exercise treadmill stress test without imaging. ORDERING PROVIDER: David Enriquez MD INDICATIONS: The patient is a 69-year-old male with hyperlipidemia and exertional dyspnea, chest discomfort, and tachycardia. FINDINGS: 1. The patient was able to exercise for 4 minutes 35 seconds on a standard Shoaib protocol suggesting moderately impaired exercise capacity with an MIC of +28%, achieving 7.0 METS. 2. He had a normal heart rate and blood pressure response to exercise, achieving a maximum heart rate of 157 BPM (105% of his predicted maximum). 3. He had no chest discomfort or other anginal symptoms except for exertional dyspnea. 4. His resting ECG shows sinus rhythm with occasional PVCs but normal ST segments. With stress, he develops slight upsloping ST depression that resolves within 1 minute of recovery that is nonspecific. There are no concerning ST-segment shifts or additional arrhythmias. IMPRESSION: 1. Probable normal exercise treadmill stress test for ischemia with very subtle, nonspecific upsloping ST depression that resolves promptly in recovery. 2. Moderately reduced exercise capacity without angina or other anginal symptoms. 3. He had rare isolated PVCs at rest but no arrhythmias with stress and a normal heart rate and blood pressure response to exercise. Marion, Peter - SILVANO/susan/DANIELE doc#: [id number]/job#: [id number] dd: 08/07/2024 17:21:00 dt: 08/07/2024 18:43:00 DICTATING /COPIES TO: Blake Quiñones MD; David Enriquez MD COPIES MNE: HEAVEN;
== END ==
PROVIDERS: PCP Registered Nurse Diabetes Educator; Referring Provider Internal Medicine; Visit Provider Internal Medicine
DX: R07.89 Other chest pain (principal); E78.5 Hyperlipidemia, unspecified; R06.00 Dyspnea, unspecified; R00.0 Tachycardia, unspecified
CPT/HCPCS: 93017; 93306

== ENCOUNTER → 2025-07-11 09:10 | Outpatient (CLI) | payer MEDICARE, OTHER, SELFPAY ==
[2025-07-11 09:53] LABS: Add Manual Diff / Slide Review NO; Hematocrit 41.7 % (41-53); Hemoglobin 14.1 g/dL (13.5-17.5); Lymphocytes Absolute Auto 1600 /uL (1100-4500); Mean Corpuscular HGB Conc 33.8 % (30-36); Mean Corpuscular Hemoglobin 30.5 PG (26-34); Mean Corpuscular Volume 90.3 fL (80-100); Platelet Count 145 X10^3/uL (150-400)
[2025-07-11 10:11] LABS: Alanine Aminotransferase 33 IU/L (<50); Albumin 4.3 g/dL (3.5-5.0); Albumin Globulin Ratio 1.7 (1.0-2.8); Alkaline Phosphatase 39 U/L (38-126); Blood Urea Nitrogen 18 mg/dL (9-20); Calcium 9.3 mg/dL (8.4-10.2); Carbon Dioxide 26 mmol/L (22-32); Chloride 106 mmol/L (98-107); Cholesterol 142 mg/dL (140-199); Estimated Glomerular Filt Rate > 60 mL/min (>60); Globulin 2.5 g/dL (1.7-4.1); Glucose 107 mg/dL (70-99); HDL Cholesterol 43 mg/dL (40-60); HEMOLYSIS < 15 (0-50); Potassium 4.9 mmol/L (3.4-5.1); Sodium 140 mmol/L (137-145); Total Protein 6.8 g/dL (6.3-8.2); Triglycerides 108 mg/dL (35-150)
[2025-07-11 10:38] LABS: TSH w/ Reflex to FT4 3.10 uIU/mL (0.47-4.68)
== END ==
PROVIDERS: PCP Registered Nurse Diabetes Educator; Referring Provider Registered Nurse Diabetes Educator; Visit Provider Registered Nurse Diabetes Educator
DX: I47.19 Other supraventricular tachycardia (principal); N18.30 Chronic kidney disease, stage 3 unspecified; E78.2 Mixed hyperlipidemia
CPT/HCPCS: 36415; 80053; 80061; 84443; 85025